=== PATIENT | female | born 1975 | race Hispanic/Latino ===

== ENCOUNTER 2017-09-09 02:19 | Emergency (ER) | payer OTHER ==
[~2017-09-09] VITALS: Ht 160 cm; Wt 131.5 kg
[2017-09-09] MEDS ORDERED: HYDROCODONE/APAP 10MG-325MG TAB PO ONE (03:45)
[2017-09-09] MEDS ORDERED: KETOROLAC TROMETHAMINE 60 MG/2 ML VIAL IM ONE (03:45)
[2017-09-09 04:44] VITALS: BP 131/82
== END 2017-09-09 05:05 | disposition home or self-care (01) ==
LOC: ER 02:19
DX: K08.9 Disorder of teeth and supporting structures, unspecified (principal)
CPT/HCPCS: 96372; 99283; J1885

== ENCOUNTER 2020-03-08 03:54 | Emergency (ER) | payer OTHER ==
[~2020-03-08] VITALS: Ht 160 cm; Wt 131.5 kg
[2020-03-08] MEDS ORDERED: DEXAMETHASONE 4 MG TAB PO STA (03:59)
[2020-03-08] MEDS ORDERED: ONDANSETRON HCL 4 MG ORAL DISINTEGRATING TAB PO STA (04:04)
[2020-03-08] MEDS ORDERED: ACETAMINOPHEN 325 MG TAB PO STA (04:04)
--- NOTE | 2020-03-08 04:04 | Emergency Department Note ---
History of Present Illnes History of Present Illness Chief Complaint: COVID PUI History of Present Illness This is a 44 year old female recent positive COVID-19 test, brought by EMS for [facility]YA. Oxygen saturation of 98% on RA . Arrival Mode: Onset (how long ago): day(s) (8) Radiation: Reports non-radiation Severity: moderate Onset quality: gradual Duration (how long): day(s) (8) Timing of current episode: constant Progression: worsening Chronicity: new Context: Reports recent illness Relieving factors: none Exacerbating factors: none Associated symptoms: Reports cough, Reports fever/chills, Reports headaches, Reports shortness of breath Treatments prior to arrival: none Past Medical/Family History Physician Review I have reviewed the patient's past medical and family history. Any updates have been documented here. Past Medical History Recent Fever: Yes Clinical Suspicion of Infectio: Yes New/Unexplained Change in Ment: No Past Medical History: Seizure Disorder Other Medical History: ARTHRITIS Past Surgical History: Cholecysctectomy Social History Smoking Cessation: Never Smoker Alcohol Use: None Any Illegal Drug Use: No Other Last Tetanus: UNK Review of Systems Review of Systems Constitutional: Reports fever, Reports malaise EENTM: Reports no symptoms Cardiovascular: Reports no symptoms Respiratory: Reports cough Gastrointestinal: Reports no symptoms Genitourinary: Reports no symptoms Musculoskeletal: Reports no symptoms Integumentary: Reports no symptoms Neurological: Reports no symptoms Psychological: Reports no symptoms Endocrine: Reports no symptoms Hematological/Lymphatic: Reports no symptoms Physical Exam Related Data Allergies: Coded Allergies: No Known Allergies (Unverified , 09/09/17) Triage Vital Signs Vital Signs Date Time Temp Pulse Resp B/P (MAP) Pulse Ox O2 Delivery O2 Flow Rate FiO2 03/08/20 03:58 100.8 102 15 118/59 98 Room Air Vital signs reviewed: Yes Physical Exam CONSTITUTIONAL Constitutional: Present obese HENT HENT: Present normocephalic, Present atraumatic, Present oropharynx clear/moist, Present nose normal HENT L/R: Present left ext ear normal, Present right ext ear normal EYES Eyes: Reports PERRL, Reports conjunctivae normal NECK Neck: Present ROM normal PULMONARY Pulmonary: Present effort normal, Present breath sounds normal CARDIOVASCULAR Cardiovascular: Present regular rhythm, Present heart sounds normal, Present capillary refill normal, Present tachycardia GASTROINTESTINAL Abdominal: Present soft, Present nontender, Present bowel sounds normal GENITOURINARY Genitourinary: Present exam deferred SKIN Skin: Present warm, Present dry MUSCULOSKELETAL Musculoskeletal: Present ROM normal NEUROLOGICAL Neurological: Present alert, Present oriented x 3, Present no gross motor or sensory deficits PSYCHOLOGICAL Psychological: Present mood/affect normal, Present judgement normal Assessment & Plan Medical Decision Making MDM Diff Dx : URI, pneumonia, COVID-19 infection, sepsis, hypoxia Assessment & Plan Final Impression: (1) Upper respiratory tract infection due to COVID-19 virus Depart Disposition: HOME, SELF-CARE Last Vital Signs Date Time Temp Pulse Resp B/P (MAP) Pulse Ox O2 Delivery O2 Flow Rate FiO2 03/08/20 04:05 86 17 98 03/08/20 03:58 100.8 118/59 Room Air Medications in the ED Dexamethasone 4 mg ONCE STAT PO ; Start 03/08/20 at 03:59; Stop 03/08/20 at 04:00; Status UNSEAN MCCURDY DO Mar 08, 2020 04:04
[2020-03-08 04:05] VITALS: BP 113/79
--- OUTSIDE RECORDS SUMMARY | 2020-03-08 04:10 | XMS REPORT | Clinical Summary ---
Author Author [facility] Organization [facility] Address Unknown Phone Unavailable Care Team Providers Care Windows Software Engineer Name Role Phone Pcp, No PCP Unavailable Allergies Comments Active Allergy Reactions Severity Noted Date White cheese Cheese Diarrhea 01/08/2019 Medications End Date Status Medication Sig Dispensed Refills Start Date Active fluticasone propionate 1 spray by 0 (FLONASE) 50 Nasal route 2 mcg/actuation nasal spray (two) times daily. Active gabapentin (NEURONTIN) Take 100 mg 0 100 MG capsule by mouth as needed. Active busPIRone (BUSPAR) 10 MG Take 5 mg by 0 tablet mouth 2 (two) times daily . Active Problems Problem Noted Date Seizures 01/08/2019 Social History Date Tobacco Use Types Packs/Day Years Used Current Some Day Smoker Smokeless Tobacco: Never Used Sex Assigned at Date Recorded Not on file Industry Job Start Date Occupation Not on file Not on file Not on file Travel End Travel History Travel Start No recent travel history available. Last Filed Vital Signs Not on file Plan of Treatment Care Team Description Date Type Specialty Isaac Connor [address] [facility] [address] [facility], [facility] [address] [place] [address] 05/26/2020 Hospital Encounter Results Not on fileafter 03/08/2019 Insurance Payer Benefit Subscriber ID Type Phone Address Plan / Group JOSHUA LEWIS xxxxxxxxxxx [employer] Advance Directives For more information, please contact: [facility] [address] [place] [phone] Date Inactivated Comments Code Status Date Activated 01/12/2019 3:57 PM Full Code 01/08/2019 12:25 PM This code status was determined by: Patient
[2020-03-08] MEDS ORDERED: AZITHROMYCIN 250 MG TAB ONE (04:11)
[2020-03-08] MEDS ORDERED: ACETAMINOPHEN 325 MG TAB ONE (04:11)
[2020-03-08] MEDS ORDERED: DEXAMETHASONE 4 MG TAB ONE (04:12)
[2020-03-08] MEDS ORDERED: ONDANSETRON HCL 4 MG ORAL DISINTEGRATING TAB ONE (04:12)
[2020-03-08] MEDS ORDERED: AZITHROMYCIN 250 MG TAB PO ONE (04:15)
--- NOTE | 2020-03-08 04:55 | NUR ---
RAD AT [facility] BS
--- NOTE | 2020-03-08 07:34 | Diagnostic Imaging Report ---
EXAMINATION: CHEST SINGLE (PORTABLE) INDICATION: Dyspnea. COMPARISON: None FINDINGS: TUBES and LINES: None. LUNGS: Lungs are mildly hypoinflated. There are bibasilar patchy opacities with interstitial opacities. Central vascular congestion. PLEURA: No pleural effusion or pneumothorax. HEART AND MEDIASTINUM: The cardiomediastinal silhouette is unremarkable. BONES AND SOFT TISSUES: No acute osseous lesion. Soft tissues are unremarkable. UPPER ABDOMEN: No free air under the diaphragm. IMPRESSION: Bibasilar opacities may represent infectious process, pulmonary edema, or atelectasis in the appropriate clinical setting. Suggest follow-up chest radiograph in 6-8 weeks. Signed by: Dr. Jordon Nuñez MD on 03/08/2020 7:30 AM
== END 2020-03-08 04:55 | disposition home or self-care (01) ==
LOC: ER 04:08
DX: U07.1 COVID-19 (principal); J06.9 Acute upper respiratory infection, unspecified; R50.9 Fever, unspecified; R05 Cough; R06.02 Shortness of breath; R51 Headache; G40.909 Epilepsy, unspecified, not intractable, without status epilepticus
CPT/HCPCS: 71045; 99283